=== PATIENT | female | born 1930 | race African-American/Black ===

== ENCOUNTER 2016-12-30 16:36 | Emergency (ER) | payer OTHER ==
[2016-12-30 16:54] VITALS: BP 156/76; PULSE 72; TEMP 97.4; BMI 17.7
[2016-12-30] MEDS ORDERED: ACETAMINOPHEN 325 MG TABLET (FP) PO ONE (17:14)
[2016-12-30] MEDS ORDERED: ACETAMINOPHEN 325 MG TABLET (FP) ONE (17:14)
--- NOTE | 2016-12-30 18:49 | PDOC ---
History of Present Illness - General Chief Complaint: Injury Stated Complaint: FALL/RT WRIST INJURY Time Seen by Provider: 12/30/16 17:06 History Source: Patient, Family Exam Limitations: No Limitations - History of Present Illness Initial Comments: 12/30/16 18:44 A frail 86yo female fell at home today CC with right wrist/ hand pain; pt is right hand dominant Occurred: reports: this evening Severity: reports: moderate Pain Location: reports: upper extremity Method of Injury: Yes: fall (tripped at home) Past History - Past Medical History Allergies/Adverse Reactions: Allergies Allergy/AdvReac Type Severity Reaction Status Date / Time No Known Drug Allergies Allergy Verified 12/30/16 16:49 Home Medications: Ambulatory Orders Atenolol [Tenormin -] 100 mg PO DAILY 02/13/16 Enalapril Maleate 2.5 mg PO HS 02/13/16 Anemia: No Asthma: No Cancer: No Cardiac Disorders: No CVA: No COPD: No CHF: No Dementia: No Diabetes: No GI Disorders: No Disorders: No HTN: Yes Hypercholesterolemia: No Liver Disease: No Seizures: No Thyroid Disease: No - Surgical History Abdominal Surgery: No Appendectomy: No Cardiac Surgery: No Cholecystectomy: Yes Lung Surgery: No Orthopedic Surgery: No - Psycho/Social/Smoking Cessation Hx Suicidal Ideation: No Smoking History: Never smoked Hx Alcohol Use: No Drug/Substance Use Hx: No Substance Use Type: None Review of Systems - Review of Systems Constitutional: No: Chills, Fever, Malaise Respiratory: No: Symptoms reported Cardiac (ROS): No: Symptoms Reported ABD/GI: No: Symptoms Reported : No: Symptoms Reported Musculoskeletal: Yes: Joint Pain, Joint Swelling Integumentary: Yes: Bruising. No: Symptoms Reported, Erythema Neurological: No: Numbness, Tingling *Physical Exam - Vital Signs Last Vital Signs Temp Pulse Resp BP Pulse Ox 97.4 F L 72 19 156/76 98 12/30/16 16:49 12/30/16 16:49 12/30/16 16:49 12/30/16 16:49 12/30/16 16:49 - Physical Exam General Appearance: Yes: Appropriately Dressed. No: Apparent Distress Neck: positive: Supple. negative: Tender, Rigid, Tender midline Respiratory/Chest: positive: Lungs Clear, Normal Breath Sounds. negative: Chest Tender Extremity: positive: Normal Capillary Refill Integumentary: positive: Swelling, Ecchymosis (to hand and wrist on right). negative: Rash Neurologic: positive: labeling specialist II-XII NML intact, Alert, Other (N/V intact) ED Treatment Course - RADIOLOGY Radiology Studies Ordered: Category Date Time Status WRIST W/HAND-RIGHT* [RAD] Stat Radiology 12/30/16 17:15 Taken - Medications Given in the ED: ED Medications Discontinued Medications Generic Name Dose Route Start Last Admin Trade Name Freq PRN Reason Stop Dose Admin Acetaminophen 650 mg 12/30/16 17:14 12/30/16 17:21 Tylenol - PO 12/30/16 17:15 Not Given ONCE ONE Medical Decision Making - Medical Decision Making 12/30/16 18:51 tender to distal radius and ulna with STS and bruising to hand and wrist 12/30/16 19:13 xray= negative with DJD *DC/Admit/Observation/Transfer Diagnosis at time of Disposition: Injury of right wrist Qualifiers: Encounter type: initial encounter Qualified Code(s): S69.91XA - Unspecified injury of right wrist, hand and finger(s), initial encounter - Discharge Dispostion Disposition: HOME Condition at time of disposition: Stable Admit: No - Referrals Referrals: Amy Mena MD [Primary Care Provider] - Jasper George MD [Staff Physician] - - Patient Instructions Additional Instructions: wear splint; tylenol for pain; see dr george 1week for further evaluation
== END 2016-12-30 19:43 | disposition home or self-care (01) ==
LOC: JERFT 16:36
DX: S69.81XA Other specified injuries of right wrist, hand and finger(s), initial encounter (principal); W01.0XXA Fall on same level from slipping, tripping and stumbling without subsequent striking against object, initial encounter; Y93.01 Activity, walking, marching and hiking; Y92.038 Other place in apartment as the place of occurrence of the external cause
CPT/HCPCS: 73110-TC-RT; 73130-TC-RT; 99281-25